=== PATIENT | female | born 1945 | race Caucasian/White ===

== ENCOUNTER → 2020-01-16 11:07 | Outpatient (BNVA) | payer MEDICARE, MEDICAID, SELFPAY | PROVIDERS: Family Provider Internal Medicine; Visit Provider Specialist | DX: R41.9 Unspecified symptoms and signs involving cognitive functions and awareness (principal); G30.9 Alzheimer's disease, unspecified; F02.80 Dementia in other diseases classified elsewhere, unspecified severity, without behavioral disturbance, psychotic disturbance, mood disturbance, and anxiety | CPT/HCPCS: 96116; 99213 ==

== ENCOUNTER → 2023-03-26 14:28 | Outpatient (BNVA) | payer MEDICAID, SELFPAY | PROVIDERS: Family Provider Internal Medicine; Visit Provider Dermatology | DX: L30.8 Other specified dermatitis (principal); L20.89 Other atopic dermatitis | CPT/HCPCS: 99214 ==